=== PATIENT | male | born 2000 | race Caucasian/White ===

== ENCOUNTER 2024-04-15 18:40 | Inpatient (IN) | payer MEDICARE, SELFPAY ==
[2024-04-15 18:46] VITALS: BP 131/83; PULSE 87; RESP 18; TEMP 36.9; O2SAT 98; BMI 28.7
--- NOTE | 2024-04-15 18:50 | ED.C_ITS ---
HPI - Psych 2 General: Chief Complaint: Psychiatric Symptoms Stated Complaint: si Time Seen by Provider: 04/15/24 18:44 History of Present Illness: 23-year-old male with a history of mild autism who presents emergency room with suicidal thoughts. He is not 100% forthcoming about what happened. He has some ligature russel around his neck. He says he had a wire around his neck and he was going to make himself pretty . He also shows me some self-inflicted superficial lacerations on his left dorsal forearm. He does endorse suicidal thoughts. EMS reports that he was having issues with his parent who is also his guardian. He does not report any neck pain at this time. No shortness of breath. He has superficial ligature russel around the anterior of his neck. Related Data Allergies Allergy/AdvReac Type Severity Reaction Status Date / Time No Known Allergies Allergy Verified 04/15/24 18:48 Review of Systems 2 Narrative: Constitutional symptoms: Negative except as documented in HPI. Skin symptoms: Negative except as documented in HPI. Eye symptoms: Negative except as documented in HPI. ENMT symptoms: Negative except as documented in HPI. Respiratory symptoms: Negative except as documented in HPI. Cardiovascular symptoms: Negative except as documented in HPI. Gastrointestinal symptoms: Negative except as documented in HPI. Genitourinary symptoms: Negative except as documented in HPI. Musculoskeletal symptoms: Negative except as documented in HPI. Neurologic symptoms: Negative except as documented in HPI. Psychiatric symptoms: Negative except as documented in HPI. Endocrine symptoms: Negative except as documented in HPI. Physical Exam 2 Narrative: EXAM NARRATIVE: General: Alert, no acute distress. Skin: Warm, dry. Head: Normocephalic, atraumatic. Neck: Supple, trachea midline. No bony or muscular tenderness. There is a superficial 3 mm wide laceration that goes around the entirety of the anterior of his neck. This is consistent with his story of a wire. Eye: Extraocular movements are intact. Ears, nose, mouth and throat: mucosa moist. Cardiovascular: Regular, Normal peripheral perfusion. Respiratory: Lungs are clear to auscultation, respirations are non-labored, breath sounds are equal, Symmetrical chest wall expansion. Gastrointestinal: Soft, Nontender, Non distended Musculoskeletal: Normal ROM, no deformity. Neurological: Alert and oriented, No focal neurological deficit observed. Psychiatric: Cooperative, patient is somewhat tearful, flat affect at times, very quiet, endorses suicidal thoughts. Course 2 Vital Signs: Vital signs: Vital Signs Temperature 98.5 F 04/15/24 18:46 Pulse Rate 87 04/15/24 18:46 Respiratory Rate 18 04/15/24 18:46 Blood Pressure 131/83 04/15/24 18:46 Pulse Oximetry 98 04/15/24 18:46 [facility] - Psych Medical Decision Making Differential diagnosis: Patient with reported depression and suicidal ideation. concerns for infection, alcohol intoxication, cardiac issues or other medical problems prior to psychiatric admission. Workup: labwork, ekg ordered to evaluate the pathologies and to clear the patient medically prior to psychiatric admission EKG: Time 1939. Rate 79. Normal sinus rhythm, No ST-T changes, no ectopy, normal CA & QRS intervals, This was reviewed and interpreted by myself the ER physician at 194. Lab Review: Laboratory results were reviewed and interpreted by myself the emergency room physician. - Medically cleared. - EKG shows no ischemic changes. - Blood alcohol level is negative, -Tylenol and salicylate levels are negative. - Drug screen is positive for marijuana - No signs of infection, urinalysis clear and white count is not elevated - No anemia. - BUN and creatinine are within normal limits. Consultation: I spoke with Dr. Warren who agrees to admission to the Neuropsych Unit. Assessment and plan: Suicidal ideation Possible suicide attempt Self-mutilating behaviors -Admission to neuropsychiatric unit for continued evaluation and treatment. - All lab work was reviewed and interpreted personally by myself, the ER physician - Evaluation and treatment of this problem were appropriate in the emergency setting Lab Data 04/15/24 19:25 04/15/24 19:25 Laboratory Results Urine Color Yellow (Yellow) 04/15/24 19:08 Urine Appearance Clear (CLEAR) 04/15/24 19:08 Urine pH 6.5 (5-7) 04/15/24 19:08 Ur Specific [place] 1.026 (1.005-1.030) 04/15/24 19:08 Urine Protein Trace (Negative) A 04/15/24 19:08 Urine Glucose (UA) Negative (Normal) 04/15/24 19:08 Urine Ketones Negative (Negative) 04/15/24 19:08 Urine Blood Negative (Negative) 04/15/24 19:08 Urine Nitrate Negative (Negative) 04/15/24 19:08 Urine Bilirubin Negative (Negative) 04/15/24 19:08 Urine Urobilinogen 1.0 mg/dL (Negative) 04/15/24 19:08 Ur Leukocyte Esterase Negative (Negative) 04/15/24 19:08 Urine RBC 0-2 /hpf (0-2) 04/15/24 19:08 Urine WBC 0-5 /hpf (0-5) 04/15/24 19:08 Ur Squamous Epith Cells 0-5 /hpf (0-5) 04/15/24 19:08 Amorphous Sediment Not Reportable 04/15/24 19:08 Urine Bacteria None seen /hpf (NONE) 04/15/24 19:08 Hyaline Casts 2.46 /lpf 04/15/24 19:08 Urine Opiates Screen Negative ng/mL (Negative) 04/15/24 19:08 Ur Barbiturates Screen Negative ng/mL (Negative) 04/15/24 19:08 Ur Phencyclidine Scrn Negative ng/mL (Negative) 04/15/24 19:08 Ur Amphetamines Screen Negative ng/mL (Negative) 04/15/24 19:08 U Benzodiazepines Scrn Negative ng/mL (Negative) 04/15/24 19:08 Urine Cocaine Screen Negative ng/mL (Negative) 04/15/24 19:08 U Marijuana (THC) Screen Positive ng/mL (Negative) H 04/15/24 19:08 No radiology studies performed this visit Discharge Plan Discharge Patient Disposition: Admitted As Inpatient Admit Provider: Mihir Warren Clinical Impression: Suicidal ideation, Self mutilating behavior, Abrasion of neck Condition: Stable Coding Level of Care Code ED Line Tender Flakeboard for Agustin Boo
--- NOTE | 2024-04-15 18:56 | PC.NURSE ---
pt states he sees angels with black wings flying around in the department currently
--- NOTE | 2024-04-15 18:57 | CTR_ITS ---
PROCEDURE INFORMATION: Exam: CTA Neck With Contrast Exam date and time: 04/15/2024 7:52 PM Age: 23 years old Clinical indication: Injury or trauma; Other: Attempted hanging; Blunt trauma; Neck TECHNIQUE: Imaging protocol: Computed tomographic angiography of the neck with contrast. Exam focused on the cervical segments of the vasculature. 3D rendering (Not supervised by radiologist): MIP and/or 3D reconstructed images were created by the technologist. Radiation optimization: All CT scans at this facility use at least one of these dose optimization techniques: automated exposure control; mA and/or kV adjustment per patient size (includes targeted exams where dose is matched to clinical indication); or iterative reconstruction. Contrast material: OMNI 350; Contrast volume: 100 ml; Contrast route: INTRAVENOUS (IV); COMPARISON: CT cervical spin wo con* [id number] 04/15/2024 7:49 PM RADIATION DOSE METRICS: Total DLP (mGy-cm): 413.3 FINDINGS: Right common carotid artery: No stenosis. No dissection or occlusion. Right internal carotid artery: No stenosis of the extracranial segment. No dissection or occlusion. Right external carotid artery: No occlusion or stenosis of the origin. Left common carotid artery: No stenosis. No dissection or occlusion. Left internal carotid artery: No stenosis of the extracranial segment. No dissection or occlusion. Left external carotid artery: No occlusion or stenosis of the origin. Right vertebral artery: No stenosis. No dissection or occlusion. Left vertebral artery: No stenosis. No dissection or occlusion. Larynx: Asymmetric thickening of the along the superior aspect of the right vocal fold measuring approximately 14 x 8 mm (series 4, image 106). Soft tissues: Normal. No significant soft tissue swelling. Bones/joints: No acute fracture. CT/CT angio neck [id number] IMPRESSION: 1. Asymmetric thickening of the along the superior aspect of the right vocal fold. In the context of attempted hanging, this likely represents a small hematoma. 2. No vascular trauma appreciated. 3. No acute fracture. REFERENCES: NASCET CRITERIA. The degree of stenosis in the cervical segment of the internal carotid artery is based on NASCET criteria. Normal is no stenosis. Mild is less than 50% stenosis. Moderate is 50-69% stenosis. Severe is 70% to 99% stenosis. Total occlusion is no detectable patent lumen.
--- NOTE | 2024-04-15 18:57 | CTR_ITS ---
PROCEDURE INFORMATION: Exam: CT Cervical Spine Without Contrast Exam date and time: 04/15/2024 7:49 PM Age: 23 years old Clinical indication: Injury or trauma; Other: Attempted hanging; Blunt trauma; Additional info: Traumatic, neck pain TECHNIQUE: Imaging protocol: Computed tomography of the cervical spine without contrast. Radiation optimization: All CT scans at this facility use at least one of these dose optimization techniques: automated exposure control; mA and/or kV adjustment per patient size (includes targeted exams where dose is matched to clinical indication); or iterative reconstruction. COMPARISON: No relevant prior studies available. RADIATION DOSE METRICS: Total DLP (mGy-cm): 178.77 FINDINGS: Bones/joints: No acute fracture. Normal alignment. C2-C3: No significant disc bulge or herniation. No severe spinal canal stenosis. No significant neural foraminal narrowing. C3-C4: No significant disc bulge or herniation. No severe spinal canal stenosis. No significant neural foraminal narrowing. C4-C5: No significant disc bulge or herniation. No severe spinal canal stenosis. No significant neural foraminal narrowing. C5-C6: No significant disc bulge or herniation. No severe spinal canal stenosis. No significant neural foraminal narrowing. C6-C7: No significant disc bulge or herniation. No severe spinal canal stenosis. No significant neural foraminal narrowing. C7-T1: No significant disc bulge or herniation. No severe spinal canal stenosis. No significant neural foraminal narrowing. Lungs: Lung apices are normal. Soft tissues: Unremarkable. CT/CT cervical spin wo con* [id number] IMPRESSION: No acute findings.
[2024-04-15 19:23] LABS: Bilirubin Urine Negative (Negative); Blood Urine Negative (Negative); Glucose Urine UA Negative (Normal); Ketones Urine Negative (Negative); Leukocyte Esterase Urine Negative (Negative); Nitrate Urine Negative (Negative); Protein Urine Trace (Negative); Specific Gravity, Urine 1.026 (1.005-1.030); Urine Appearance Clear (CLEAR); Urine Color Yellow (Yellow); pH Urine 6.5 (5-7)
[2024-04-15 19:26] LABS: Bacteria Urine None Seen /hpf; Hyaline Casts Urine 2.46 /lpf; RBC Urine 0-2 /hpf (0-2); Squamous Epithelial Cell Urine 0-5 /hpf (0-5); WBC Urine 0-5 /hpf (0-5)
[2024-04-15 19:36] LABS: Amphetamines Screen Urine Negative (Negative); Barbiturates Screen Urine Negative (Negative); Benzodiazepines Screen Urine Negative (Negative); Cocaine Screen Urine Negative (Negative); Opiate Screen Urine Negative (Negative); PCP Screen Urine Negative (Negative); THC Screen Urine Positive (Negative)
--- NOTE | 2024-04-15 19:40 | ECG_ITS ---
[facility] Date: 2024-04-15 Pat Name: Jimmy Parikh Department: Room: 131 Gender: Male Customer Service Technician: : [id number] Requested By: Rubina Lundberg Order Number: [id number] Candelaria MD: Jc Goss M.D. Measurements Intervals [place] Rate: 79 P: 54 WI: 142 QRS: 79 QRSD: 93 T: 49 QT: 335 QTc: 385 Interpretive Statements SINUS RHYTHM WITH SINUS ARRHYTHMIA EARLY REPOLARIZATION [ST ELEVATION WITH NORMALLY INFLECTED T-WAVE] No previous ECG available for comparison Electronically Signed On 04-16-2024 09:30:33 HEALTH INFORMATION MANAGER by Jc Goss M.D. [email or web address]
--- NOTE | 2024-04-15 19:40 | PC.NURSE ---
96 hr rights reviewed with patient @[id number] with assistance of [facility] admissions officer Sixto. All education reviewed with patient. No verbalized questions or concerns at this time Pt did request to finish one phone call before collecting his personal belongings. HS and security remained with patient as he spoke with his sister in law and brother to update them on his current condition. Pt became tearful and stated he wished to live with them and them obtain guardianship once he is released. HS Spoke with pt's brother and sister in law and advised them that with a guardianship in place, they would need to try and call the unit regarding any updates in his care. Patient copy was left with pt. Snacks provided by primary RN Jacqueline. Pt calm and cooperative, with tentative bed assignment once patient is medically cleared for admission. No further needs at this time
[2024-04-15 19:42] LABS: Basophils # 0.1 10^3/uL (0.0-0.1); Basophils % 0.6 %; Eosinophils # 0.1 10^3/uL (0.0-0.8); Eosinophils % 0.9 %; Hematocrit 45.4 % (37-53); Lymphocytes # 2.7 10^3/uL (0.8-4.8); Lymphocytes % 30.7 %; Mean Corpuscular HGB Conc 32.4 g/dL (30-55); Mean Corpuscular Volume 80.2 fl (82-101); Mean Platelet Volume 9.8 fL (7.4-10.4); Monocytes # 0.8 10^3/uL (0.2-0.9); Monocytes % 9.3 %; Neutrophils # 5.06 10^3/uL (1.8-7.7); Neutrophils % 58.3 %; Nucleated Red Blood Cells % 0 %; Platelet Count 366 10^3/cmm (157-399); Red Blood Count 5.66 10^6/uL (3.85-5.65); Red Cell Distribution Width 13.5 % (12.1-15.1); White Blood Count 8.69 10^3/uL (3.29-11.43)
[2024-04-15] MEDS: iohexol 350 mg/mL 500 mL Btl (per mL) IV (19:59)
[2024-04-15 20:07] LABS: Covid PCR NEGATIVE (Negative); Influenza A NEGATIVE (Negative); Influenza B NEGATIVE (Negative); Respiratory Syncytial Virus Ce NEGATIVE (Negative)
[2024-04-15 20:20] LABS: Alanine Aminotransferase 28 U/L (0-41); Albumin Level 4.7 g/dL (3.5-5.2); Alkaline Phosphatase 88 U/L (40-130); Anion Gap 16.1 (5-19); Aspartate Amino Transferase 19 U/L (0-40); Blood Urea Nitrogen 11 mg/dL (6-20); Calcium 10.1 mg/dL (8.5-10.5); Carbon Dioxide 23 mmol/L (22-29); Chloride 101 mmol/L (98-107); Creatinine Clr Calc Pharmacy 187.7493; Globulin 3.4 g/dL (1.3-4.6); Glomerular Filtration Rate 119.8 mL/min (90-130); Glucose 91 mg/dL (65-115); Osmolality Calculated 281 mOsm/kg (285-295); Potassium 4.1 mmol/L (3.5-5.1); Sodium 136 mmol/L (136-145); Thyroid Stimulating Hormone 0.18 uIU/mL (0.27-4.20); Total Bilirubin 0.4 mg/dL (0.15-1.2); Total Protein 8.1 g/dL (6.6-8.7)
[2024-04-15 20:25] LABS: Acetaminophen < 5.0 ug/mL (10-30); Alcohol Level < 10 mg/dL (0-10); Salicylate < 0.3 mg/dL (3-10)
[2024-04-15 22:29] VITALS: BP 128/78; PULSE 70; RESP 16; TEMP 36.8; O2SAT 98
--- NOTE | 2024-04-16 04:19 | PC.NURSE ---
ADMISSION NOTE Pt arrived to NPU by wheelchair at 2157 on A 96 hour hold. Pt states that he is here because he tried to hang himself with a wire earlier today. Pt states that he has been having a lot of issues at home with his mom and states that she will not let him move out or get a job, which is causing a lot of stress and depression. Pt states that occasionally he will have auditory and visual hallucinations where he sees shadows and hears mumbling. Pt told this nurse that he has attempted suicide in the past with his last attempt being last week he tried to hang himself from a tree but the branch broke. Pts skin assessment showed that he has an abrasion on his neck from the wire and superficial scratches on his right forearm. Pt denies si/hi/avh during assessment. Pt was orientated to the unit and dressed into NPU scrubs. Pt is now observed resting in bed quietly with eyes closed. Behavioral monitoring continues.
[2024-04-16 06:00] VITALS: BP 114/69; PULSE 63; RESP 16; TEMP 36.6; O2SAT 98
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
[2024-04-16 14:00] VITALS: BP 111/72; PULSE 82; RESP 14; TEMP 36.8; O2SAT 98
--- NOTE | 2024-04-16 16:25 | PC.NURSE ---
pt walked up to nurses station window stating to this guard manager that if his mom comes to visit he requests a guard to be present standing beside her at all times during their visit. reassured pt he was safe while in this facility.
[2024-04-16 20:30] VITALS: BP 134/83; PULSE 105; RESP 18; TEMP 37.1; O2SAT 96
--- NOTE | 2024-04-17 03:21 | PC.NURSE ---
pt in hallway crouched in corner by dayroom. went to ask pt what was wrong he stated he dont like a roommate and wanted to sleep in the corner. charged nurse aware will cont. to monitor pt
--- NOTE | 2024-04-17 04:20 | PC.NURSE ---
pt is in dayroom with lights of with his head on table sleeping pt doesnt want to sleep in bed in room due to room mate. charge is aware.
[2024-04-17 06:00] VITALS: BP 136/86; PULSE 64; RESP 16; TEMP 36.5; O2SAT 99
--- NOTE | 2024-04-17 10:18 | W.PM.NPUPNS ---
Subjective NPU Subjective: Patient presented today reporting that he is doing okay. When he was awoken he was looking at this poem writer and we were having a conversation but later he made a statement that clearly was intended to be facetious about being glad he spoke to me today as if he did not recall as having a conversation. I discussed our interaction and we had a reasonable conversation then but he continued to have fairly histrionic behaviors per staff reports and direct observation. He continued to deny desire to start any medication. Mental Status Exam MSE Comments: This is an overweight versus obese white male in hospital scrubs with adequate grooming and limited eye contact. No abnormal movements except for mild psychomotor agitation. Cooperative with exam in mild to moderate distress. Speech was slightly increased rate and volume. Mood described as a little depressed, affect congruent. Thought process linear. Thought content: Patient denied suicidal or homicidal ideation, there were no delusions reported noted, he denied any auditory or visual hallucinations. Reports a history of 96 suicide attempts, including a recent attempt by hanging the night before the encounter. Denied current suicidal thoughts or thoughts of harming others. Describes long-standing depression since childhood, exacerbated by family issues and the of their grandmother, with crying spells, passive wishes, and emotional dips. Reports significant stress and anxiety related to family dynamics and living conditions. Experiences visual hallucinations, including seeing angels and, rarely, lights and shadows during periods of extreme stress or depression. Describes poor sleep, often staying awake at night, and poor appetite, requiring effort to eat. Reports memory difficulties attributed to stress and depression. Mood described as improved during the session but with frequent emotional fluctuations. Attention and concentration were intact and memory appeared somewhat reliable but none were formally tested. He is alert and oriented x3. Insight and judgment limited impulse control limited versus impaired. Vitals/I&O/Wt Last Vital Signs Temp 97.7 F 04/17/24 06:00 Pulse 64 04/17/24 06:00 Resp 16 04/17/24 06:00 BP 136/86 04/17/24 06:00 Pulse Ox 99 04/17/24 06:00 O2 Del Method Room Air 04/17/24 06:00 Weight last 48 hrs Weight 113.307 kg Data NPU 04/15/24 19:25 04/15/24 19:25 A&P Assessment and plan (1) Self mutilating behavior: (2) Suicidal ideation: (3) Suicide attempt by hanging: (4) Major depressive disorder, recurrent: (5) Anxiety: (6) Personality disorder, unspecified: Plan This is a 23-year-old white male who is unknown to [facility] psychiatric services. The patient presents with a history of chronic depression, suicidal ideation, and a recent suicide attempt by hanging. There is a reported history of auditory and visual hallucinations occurring rarely, typically under significant stress or depressive episodes. The patient also describes a longstanding pattern of depressive symptoms, including feelings of worthlessness, hopelessness, and passive wishes, which have been present since childhood and exacerbated by significant life events such as parental divorce and the of a grandmother. The patient has a history of autism spectrum disorder, which may contribute to social and emotional challenges. There is no current evidence of active psychosis, but the patient reports intermittent experiences of seeing angels and other visual phenomena. The patient has a history of unsuccessful trials with antidepressant medications, reporting adverse effects such as emotional blunting. The patient denies current suicidal ideation or homicidal ideation during the encounter but acknowledges a history of multiple prior suicide attempts. 1. Continue off of medication per patient's preference but recommended antidepressant or mood stabilizer. 2. Continue every 15 minute checks for safety 3. Encourage individual, group and milieu therapy. 4. Encourage sober living treatment after discharge at the highest level care to which he is willing to commit. 5. Obtain collateral information. 6. Evaluate against the backdrop of the 96-hour hold for safety. Patient displaying symptoms consistent with personality disorder. Involuntary Hold Information 96 Hour Hold: 96 Hour Involuntary Admission: Yes 96 Hour Hold Ending Date: 04/21/24 96 Hour Hold Ending Time: 19:01 Other Hold: Hold End Date: 04/21/24 Attestations U Medical Necessity Statement*: Inpatient hospitalization is medically necessary and the clinically appropriate intervention at this time. We will monitor/initiate medications and make changes as indicated. Likely length of stay 5-7 days. Coding Level of Care Code Acute Code for [facility] Fwd Diagnoses Self mutilating behavior Z72.89 Suicidal ideation R45.851 Suicide attempt by hanging T71.162A Major depressive disorder, recurrent F33.9 Anxiety F41.9 Personality disorder, unspecified F60.9
[2024-04-17 14:00] VITALS: BP 131/77; PULSE 79; RESP 14; TEMP 37.2; O2SAT 97
[2024-04-17 20:49] VITALS: BP 133/88; PULSE 81; RESP 18; TEMP 37.2; O2SAT 98
[2024-04-18 06:00] VITALS: BP 107/68; PULSE 83; RESP 17; TEMP 36.4; O2SAT 99
[2024-04-18 14:00] VITALS: BP 101/74; PULSE 74; RESP 16; TEMP 36.9; O2SAT 94
--- NOTE | 2024-04-18 15:29 | P.NPUPN_ITS ---
Subjective NPU 2 Subjective: 23-year-old male admitted with suicidal ideation. The patient had reported that he had 96 previous suicide attempts. He reports that he had been diagnosed with high functioning autism and stated that he had difficulties with changes in routine. He had reported that he felt safe being here and stated that he did not want to return to his mother's care. Despite this, the patient is stated that he was unsure but felt that his mother may be his legal guardian. He had reported that he had been on disability for the diagnosis of autistic spectrum disorder. Patient reported that he did not feel that he needed medications for depression. The patient had reported that he felt that his mother was a deceitful person and stated that he wished to live with his brother. . Mental Status Exam 2 MSE Comments: This is an overweight versus obese white male in hospital scrubs with poor grooming and poor eye contact. No abnormal movements except for mild psychomotor retardation. He was cooperative with exam in mild to moderate distress. Speech was monotone in quality and normal in rate and volume. Mood described as okay. Affect was flat. Thought process was linear and logical. Thought content: Patient endorsed contingent suicidality. He denied any auditory or visual hallucinations. Reports a history of 96 suicide attempts, including a recent attempt by hanging the night before the encounter. Describes long-standing depression since childhood, exacerbated by family issues and the of their grandmother, with crying spells, passive wishes, and emotional dips. Reports significant stress and anxiety related to family dynamics and living conditions. Endorsed no auditory or visual hallucinations, Attention and concentration were intact and memory appeared somewhat reliable but none were formally tested. He is alert and oriented x3. Insight and judgment limited impulse control limited versus impaired. Vitals/I&O/Wt Last Vital Signs Temp 98.5 F 04/18/24 14:00 Pulse 74 04/18/24 14:00 Resp 16 04/18/24 14:00 BP 101/74 04/18/24 14:00 Pulse Ox 94 04/18/24 14:00 O2 Del Method Room Air 04/18/24 14:00 Weight last 48 hrs Weight 113.307 kg Data NPU 04/15/24 19:25 04/15/24 19:25 A&P Assessment and plan (1) Autistic spectrum disorder: (2) Anxiety: (3) Suicidal ideation: (4) Self mutilating behavior: (5) Suicide attempt by hanging: (6) Major depressive disorder, recurrent: (7) Personality disorder, unspecified: Plan This is a 23-year-old white male with autistic disorder and depression and anxiety. There is a reported history of auditory and visual hallucinations occurring rarely, typically under significant stress or depressive episodes. The patient also describes a longstanding pattern of depressive symptoms, including feelings of worthlessness, hopelessness, and passive wishes, which have been present since childhood and exacerbated by significant life events such as parental divorce and the of a grandmother. The patient has a history of autism spectrum disorder, which may contribute to social and emotional challenges. There is no current evidence of active psychosis, but the patient reports intermittent experiences of seeing angels and other visual phenomena. The patient has a history of unsuccessful trials with antidepressant medications, reporting adverse effects such as emotional blunting. The patient denies current suicidal ideation or homicidal ideation during the encounter but acknowledges a history of multiple prior suicide attempts. 1. Patient refusing medications at this time. 2. Continue every 15 minute checks for safety 3. Encourage individual, group and milieu therapy. 4. Encourage sober living treatment after discharge at the highest level care to which he is willing to commit. 5. Obtain collateral information. 6. Evaluate against the backdrop of the 96-hour hold for safety. Patient displaying symptoms consistent with personality disorder. Involuntary Hold Information 2 96 Hour Hold: 96 Hour Involuntary Admission: Yes 96 Hour Hold Ending Date: 04/21/24 96 Hour Hold Ending Time: 19:01 Other Hold: Hold End Date: 04/21/24 Attestations NPU 2 Medical Necessity Statement*: Inpatient hospitalization is medically necessary and the clinically appropriate intervention at this time. We will monitor/initiate medications and make changes as indicated. Likely length of stay 5-7 days. Coding Level of Care Code Acute Code for [facility] Fw Diagnoses Autistic spectrum disorder F84.0 Anxiety F41.9 Suicidal ideation R45.851 Self mutilating behavior Z72.89 Suicide attempt by hanging T71.162A Major depressive disorder, recurrent F33.9 Personality disorder, unspecified F60.9
[2024-04-18 21:34] VITALS: BP 120/78; PULSE 83; RESP 18; TEMP 36.7; O2SAT 98
[2024-04-19 06:00] VITALS: BP 110/66; PULSE 74; RESP 16; TEMP 36.4; O2SAT 97
--- NOTE | 2024-04-19 13:13 | W.PM.NPUDCS ---
Diagnoses at Discharge Discharge Diagnosis (1) Autistic spectrum disorder: Status: Acute (2) Anxiety: Status: Acute (3) Suicidal ideation: Status: Acute (4) Self mutilating behavior: Status: Acute (5) Suicide attempt by hanging: Status: Acute (6) Major depressive disorder, recurrent: Status: Acute (7) Personality disorder, unspecified: Status: Acute Reason for Visit Reason for Visit: si Hospital Course Hospital Course During the hospitalization, the patient had routine laboratory studies which were within normal limits except for a few outliers.? Additionally, there was a general medical evaluation which was also within normal limits and revealed no new acute processes.? At the time of discharge, lethality was denied and psychosis was resolving.? Mood and anxiety were well managed.? The patient endorsed a plan to avoid all drugs of abuse and follow up with the aftercare recommendations of the treatment team.? The patient was evaluated and deemed to be absent credible lethality and had achieved the maximum benefit from an inpatient hospitalization, and so was discharged. Involuntary Hold Information 96 Hour Hold: 96 Hour Involuntary Admission: Yes 96 Hour Hold Ending Date: 04/21/24 96 Hour Hold Ending Time: 19:01 Other Hold: Hold End Date: 04/21/24 Discharge Data Studies Completed and Pending: Completed Studies During Hospitalization Category Date Time Status CT cervical spin wo con* [id number] Stat Cat Scan 04/15/24 18:57 Completed CTA neck [CT dimple o neck 75025] Stat Cat Scan 04/15/24 18:57 Completed Radiology Impressions Cervical Spine CT 04/15/24 18:57 IMPRESSION: No acute findings. Neck CTA 04/15/24 18:57 IMPRESSION: 1. Asymmetric thickening of the along the superior aspect of the right vocal fold. In the context of attempted hanging, this likely represents a small hematoma. 2. No vascular trauma appreciated. 3. No acute fracture. REFERENCES: NASCET CRITERIA. The degree of stenosis in the cervical segment of the internal carotid artery is based on NASCET criteria. Normal is no stenosis. Mild is less than 50% stenosis. Moderate is 50-69% stenosis. Severe is 70% to 99% stenosis. Total occlusion is no detectable patent lumen. Laboratory Results WBC 8.69 10^3/uL (3.2 9-11.43) 04/15/24 19:25 RBC 5.66 10^6/uL (3.8 5-5.65) H 04/15/24 19:25 Hgb 14.70 g/dL (11.27 -16.99) 04/15/24 19:25 Hct 45.4 % (37-53) 04/15/24 19: MCV 80.2 fl (82-101) L 04/15/24 19:25 MCH 26.0 pg (27-33) L 04/15/24: MCHC 32.4 g/dL (30-55) 04/15/24 19: RDW 13.5 % (12.1-15.1 ) 04/15/24 19: Plt Count 366 10^3/cmm (157 -399) 04/15/24: MPV 9.8 fL (7.4-10.4) 04/15/24:25 Neut % (Auto) 58.3 % 04/15/24: Lymph % (Auto) 30.7 % 04/15/24 19: [place] % (Auto) 9.3 % 04/15/24 19:25 Eos % (Auto) 0.9 % 04/15/24 19:25 Baso % (Auto) 0.6 % 04/15/24: Neut # (Auto) 5.06 10^3/uL (1.8 -7.7) 04/15/24: Lymph # (Auto) 2.7 10^3/uL (0.8- 4.8) 04/15/24:25 [place] # (Auto) 0.8 10^3/uL (0.2- 0.9) 04/15/24: Eos # (Auto) 0.1 10^3/uL (0.0- 0.8) 04/15/24: Baso # (Auto) 0.1 10^3/uL (0.0- 0.1) 04/15/24: Nucleated RBC % (a uto) 0 % 04/15/24: Nucleated RBCs # 0.0 /100WBC 04/15/24 19:25 Sodium 136 mmol/L (136-1 45) 04/15/24 19:25 Potassium 4.1 mmol/L (3.5-5 .1) 04/15/24 19: Chloride 101 mmol/L (98-10 7) 04/15/24 19:25 Carbon Dioxide 23 mmol/L (22-29) 04/15/24 19:25 Anion Gap 16.1 (5-19) 04/15/24 19:25 BUN 11 mg/dL (6-20) 04/15/24 19:25 Creatinine 0.8 mg/dL (0.7-1. 2) 04/15/24 19:25 GFR Calculation 119.8 mL/min (90- 130) 04/15/24 19:25 Glucose 91 mg/dL (65-115) 04/15/24 19:25 Calculated Osmolal ity 281 mOsm/kg (285- 295) L 04/15/24 19:25 Calcium 10.1 mg/dL (8.5-1 0.5) 04/15/24 19:25 Total Bilirubin 0.4 mg/dL (0.15-1 .2) 04/15/24 19:25 AST 19 U/L (0-40) 04/15/24 19:25 ALT 28 U/L (0-41) 04/15/24 19:25 Alkaline Phosphata se 88 U/L (40-130) 04/15/24 19:25 Total Protein 8.1 g/dL (6.6-8.7 ) 04/15/24 19:25 Albumin 4.7 g/dL (3.5-5.2 ) 04/15/24 19:25 Globulin 3.4 g/dL (1.3-4.6 ) 04/15/24 19:25 TSH 0.18 uIU/mL (0.27 -4.20) L 04/15/24 19:25 Urine Color Yellow (Yellow) 04/15/24 19:08 Urine Appearance Clear (CLEAR) 04/15/24 19:08 Urine pH 6.5 (5-7) 04/15/24 19:08 Ur Specific Gravit y 1.026 (1.005-1.0 30) 04/15/24 19:08 Urine Protein Trace (Negative) A 04/15/24 19:08 Urine Glucose (UA) Negative (Normal ) 04/15/24 19:08 Urine Ketones Negative (Negati ve) 04/15/24 19:08 Urine Blood Negative (Negati ve) 04/15/24 19:08 Urine Nitrate Negative (Negati ve) 04/15/24 19:08 Urine Bilirubin Negative (Negati ve) 04/15/24 19:08 Urine Urobilinogen 1.0 mg/dL (Negati ve) 04/15/24 19:08 Ur Leukocyte Padmaja ase Negative (Negati ve) 04/15/24 19:08 Urine RBC 0-2 /hpf (0-2) 04/15/24 19:08 Urine WBC 0-5 /hpf (0-5) 04/15/24 19:08 Ur Squamous Epith Cells 0-5 /hpf (0-5) 04/15/24 19:08 Amorphous Sediment Not Reportable 04/15/24 19:08 Urine Bacteria None seen /hpf (N ONE) 04/15/24 19:08 Hyaline Casts 2.46 /lpf 04/15/24 19:08 Salicylates < 0.3 mg/dL (3-10 ) L 04/15/24 19:25 Urine Opiates Scre en Negative ng/mL (N egative) 04/15/24 19:08 Acetaminophen < 5.0 ug/mL (10-3 0) L 04/15/24 19:25 Ur Barbiturates Sc reen Negative ng/mL (N egative) 04/15/24 19:08 Ur Phencyclidine S crn Negative ng/mL (N egative) 04/15/24 19:08 Ur Amphetamines Sc reen Negative ng/mL (N egative) 04/15/24 19:08 U Benzodiazepines Scrn Negative ng/mL (N egative) 04/15/24 19:08 Urine Cocaine Scre en Negative ng/mL (N egative) 04/15/24 19:08 U Marijuana (THC) Screen Positive ng/mL (N egative) H 04/15/24 19:08 Ethyl Alcohol < 10 mg/dL (0-10) 04/15/24 19:25 Coronavirus (PCR) Negative (Negati ve) 04/15/24 19:25 Influenza A (PCR) Negative (Negati ve) 04/15/24 19:25 Influenza Type B ( PCR) Negative (Negati ve) 04/15/24 19:25 RSV (PCR) Negative (Negati ve) 04/15/24 19:25 Vitals: Last Vital Signs Temp 97.5 F L 04/19/24 06:00 Pulse 74 12/16/24 06:00 Resp 16 04/19/24 06:00 BP 110/66 04/19/24 06:00 Pulse Ox 97 04/19/24 06:00 O2 Del Method Room Air 04/18/24 14:00 Discharge Plan Discharge Patient Disposition: Home Condition: Stable Prescriptions: Continued No Known Home Medications Discharge Orders: Discharge Order (Routine); Ordered 04/19/24 Ordered By: Eron Loya Referrals: [facility] [Outside] - 04/21/24 7:30 am (Initial assessment with Hannah ) Anette Berry [Primary Care Provider] - Discharge Diet: Usual diet Discharge Activity: Resume usual activity Patient Instructions: Depression (DC), Help Prevent Suicide (DC), Opioid Safety Coding Level of Care Code Acute Code for [facility] Fwd Diagnoses Autistic spectrum disorder F84.0 Anxiety F41.9 Suicidal ideation R45.851 Self mutilating behavior Z72.89 Suicide attempt by hanging T71.162A Major depressive disorder, recurrent F33.9 Personality disorder, unspecified F60.9
--- NOTE | 2024-04-19 13:14 | P.NPUPN_ITS ---
Subjective NPU 2 Subjective: 23-year-old male with autistic spectrum disorder admitted with suicidal ideation and depression. The patient had reported that he had been feeling better. He had continued to report that he did not wish to return to live with his mother. He had continued to report that he wished to go live with his brother and [place]. He had been compliant and cooperative on the milieu. He had refused any antidepressants at this time stating that he did not feel depressed when he was away from his mother. He had reported adequate sleep. He had reported having some difficulties with swallowing. Mental Status Exam 2 MSE Comments: This is an overweight versus obese white male in hospital scrubs with poor grooming and poor eye contact. No abnormal movements except for mild psychomotor retardation. He was cooperative with exam in mild distress. Speech was monotone in quality and normal in rate and volume. Mood described as good. Affect was brighter today. Thought process was linear and logical. Thought content: Patient denied any homicidal or suicidal ideation. He denied any auditory or visual hallucinations. Reports a history of 96 suicide attempts, including a recent attempt by hanging the night before the encounter. Describes long-standing depression since childhood, exacerbated by family issues and the of their grandmother, with crying spells, passive wishes, and emotional dips. Reports significant stress and anxiety related to family dynamics and living conditions. Endorsed no auditory or visual hallucinations, Attention and concentration were intact and memory appeared somewhat reliable but none were formally tested. He is alert and oriented x3. Insight was limited. Judgment was limited. Impulse control appeared limited at this time. Vitals/I&O/Wt Last Vital Signs Temp 97.5 F L 04/19/24 06:00 Pulse 74 04/19/24 06:00 Resp 16 04/19/24 06:00 BP 110/66 04/19/24 06:00 Pulse Ox 97 04/19/24 06:00 O2 Del Method Room Air 04/18/24 14:00 Weight last 48 hrs Weight 113.307 kg Data NPU 04/15/24 19:25 04/15/24 19:25 A&P Assessment and plan (1) Anxiety: (2) Autistic spectrum disorder: (3) Suicidal ideation: (4) Self mutilating behavior: (5) Suicide attempt by hanging: (6) Major depressive disorder, recurrent: (7) Personality disorder, unspecified: Plan This is a 23-year-old white male with autistic disorder and depression and anxiety. There is a reported history of auditory and visual hallucinations occurring rarely, typically under significant stress or depressive episodes. The patient also describes a longstanding pattern of depressive symptoms, including feelings of worthlessness, hopelessness, and passive wishes, which have been present since childhood and exacerbated by significant life events such as parental divorce and the of a grandmother. The patient has a history of autism spectrum disorder, which may contribute to social and emotional challenges. There is no current evidence of active psychosis, but the patient reports intermittent experiences of seeing angels and other visual phenomena. The patient has a history of unsuccessful trials with antidepressant medications, reporting adverse effects such as emotional blunting. The patient denies current suicidal ideation or homicidal ideation during the encounter but acknowledges a history of multiple prior suicide attempts. 1. No medications at this time. Appears to be safe at this time. Requesting Swallowing study with pain and difficulty swallowing new onset. 2. Continue every 15 minute checks for safety 3. Encourage individual, group and milieu therapy. 4. Encourage sober living treatment after discharge at the highest level care to which he is willing to commit. 5. Obtain collateral information. 6. Evaluate against the backdrop of the 96-hour hold for safety. Patient displaying symptoms consistent with personality disorder. Involuntary Hold Information 2 96 Hour Hold: 96 Hour Involuntary Admission: Yes 96 Hour Hold Ending Date: 04/21/24 96 Hour Hold Ending Time: 19:01 Other Hold: Hold End Date: 04/21/24 Attestations NPU 2 Medical Necessity Statement*: Inpatient hospitalization is medically necessary and the clinically appropriate intervention at this time. We will monitor/initiate medications and make changes as indicated. Likely length of stay 1-2 days. Coding Level of Care Code Acute Code for g Fwd Diagnoses Anxiety F41.9 Autistic spectrum disorder F84.0 Suicidal ideation R45.851 Self mutilating behavior Z72.89 Suicide attempt by hanging T71.162A Major depressive disorder, recurrent F33.9 Personality disorder, unspecified F60.9
[2024-04-19 14:00] VITALS: BP 144/75; PULSE 93; RESP 16; TEMP 37; O2SAT 95
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
[2024-04-19 15:50] VITALS: BP 144/73; PULSE 93; RESP 16; TEMP 37; O2SAT 95
--- NOTE | 2024-04-19 16:41 | DCPLANNER ---
IMM completed by phone on 04/19/2024 @ [id number].
== END 2024-04-19 16:30 | disposition home or self-care (01) | DRG 880 ==
LOC: ER 19:03 → NP 19:18
PROVIDERS: Admitting Provider Psychiatry & Neurology Psychiatry; Emergency Provider Emergency Medicine; PCP Physician Assistant Medical; Visit Provider Psychiatry & Neurology Psychiatry
DX: F41.9 Anxiety disorder, unspecified (principal); R45.851 Suicidal ideations; F60.9 Personality disorder, unspecified; F84.0 Autistic disorder; S51.812A Laceration without foreign body of left forearm, initial encounter; E66.9 Obesity, unspecified; Z68.31 Body mass index [BMI] 31.0-31.9, adult; X78.9XXA Intentional self-harm by unspecified sharp object, initial encounter; Z91.51 Personal history of suicidal behavior
CPT/HCPCS: 0241U; 70498; 72125; 80053; 80306; 80307; 81001; 84443; 85025; 93005; 97150; 97165; 99285